=== PATIENT | female | born 2000 | race Caucasian/White ===

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

== ENCOUNTER 2020-07-26 00:50 | Emergency (ER) | payer SELFPAY ==
[~2020-07-26] VITALS: Ht 160 cm; Wt 67.0 kg
[~2020-07-26 00:50] MED LIST changes: +ACHYD1T PO; +BENZ100C18 PO; +CEFD300C3 PO; +GUAI1TBM19 PO; -HYDR-3820 PO; +METH4TAB PO; +RT-ALBUINH IH
[2020-07-26] MEDS ORDERED: NS IV 1000 ML 1,000 ML IV SCH (00:59)
[2020-07-26 01:15] LABS: BILIRUBIN,URINE NEGATIVE (NEGATIVE); CLARITY,URINE CLEAR; COLOR,URINE YELLOW; GLUCOSE, URINE (UA) NEGATIVE (NEGATIVE); KETONES,URINE NEGATIVE (NEGATIVE); LEUKOCYTE ESTERASE ,URINE 1+ (NEGATIVE); NITRITE,URINE NEGATIVE (NEGATIVE); PROTEIN,URINE NEGATIVE (NEGATIVE)
[2020-07-26] MEDS ORDERED: fentaNYL INJECTION 100 MCG/2 ML AMP IVP ONE (01:15)
[2020-07-26 01:25] LABS: BACTERIA,URINE MODERATE /HPF
[2020-07-26 01:30] LABS: AMPHETAMINE SCREEN, URINE POSITIVE (NEGATIVE); BARBITURATE SCREEN URINE NEGATIVE (NEGATIVE); BENZODIAZEPINES SCREEN URINE NEGATIVE (NEGATIVE); CANNABINOID SCREEN, URINE POSITIVE (NEGATIVE); COCAINE SCREEN URINE NEGATIVE (NEGATIVE); METHADONE STAT NEGATIVE (NEGATIVE); METHAMPHETAMINE SCREEN URINE S POSITIVE (NEGATIVE); OPIATE SCREEN URINE NEGATIVE (NEGATIVE); OXYCODONE STAT NEGATIVE (NEGATIVE); PROPOXYPHENE STAT NEGATIVE (NEGATIVE); TRICYCLIC ANTIDEPRESSANTS SCRE NEGATIVE (NEGATIVE)
[2020-07-26 01:31] LABS: BASOPHILS # (AUTO) 0.1 10^3/uL (0.0-0.1); BASOPHILS % (AUTO) 0 % (0-10); EOSINOPHILS # (AUTO) 0.3 10^3/uL (0.0-0.3); EOSINOPHILS % (AUTO) 3 % (0-10); HEMATOCRIT 38 % (35-52); HEMOGLOBIN 12.9 G/DL (11.5-16.0); LYMPHOCYTES # (AUTO) 2.4 X 10^3 (1.0-4.0); LYMPHOCYTES % (AUTO) 17 % (12-44); MEAN CORPUSCULAR HEMOGLOBIN 30 PG (25-34); MEAN CORPUSCULAR HGB CONC 34 G/DL (32-36); MEAN CORPUSCULAR VOLUME 88 FL (80-99); MEAN PLATELET VOLUME 9.4 FL (7.4-10.4); MONOCYTES # (AUTO) 1.4 X 10^3 (0.0-1.0); MONOCYTES % (AUTO) 10 % (0-12); NEUTROPHILS # (AUTO) 9.5 X 10^3 (1.8-7.8); NEUTROPHILS % (AUTO) 70 % (42-75); PLATELET COUNT 384 10^3/uL (130-400); RED CELL DISTRIBUTION WIDTH 15.1 % (10.0-14.5); WHITE BLOOD COUNT 13.7 10^3/uL (4.3-11.0)
[2020-07-26 01:44] LABS: ALBUMIN 4.6 GM/DL (3.2-4.5); CHLORIDE 103 MMOL/L (98-107); SODIUM 130 MMOL/L (135-145)
[2020-07-26 01:45] LABS: CALCIUM 8.7 MG/DL (8.5-10.1)
[2020-07-26 01:46] LABS: GLUCOSE 86 MG/DL (70-105)
[2020-07-26 01:47] LABS: CARBON DIOXIDE 20 MMOL/L (21-32); TOTAL PROTEIN 9.9 GM/DL (6.4-8.2)
[2020-07-26 01:48] LABS: BILIRUBIN,TOTAL 0.2 MG/DL (0.1-1.0)
[2020-07-26 01:50] LABS: ALKALINE PHOSPHATASE 72 U/L (40-136); CREATININE SERUM 0.79 MG/DL (0.60-1.30); GFR ESTIMATED > 60
[2020-07-26 01:51] LABS: BUN/CREATININE RATIO 41
[2020-07-26 01:53] LABS: ALANINE AMINOTRANSFERASE 26 U/L (0-55); MAGNESIUM 2.4 MG/DL (1.6-2.4)
[2020-07-26 02:13] LABS: POTASSIUM 4.3 MMOL/L (3.6-5.0)
[2020-07-26] MEDS ORDERED: NS 100 ML (IVPB) BAG IV ONE (02:45)
[2020-07-26] MEDS ORDERED: CATHETER FLUSH 10 ML SYR IV PRN (02:45)
[2020-07-26] MEDS ORDERED: HOLD METFORMIN - RECEIVED CONTRAST 20 ML VIAL IV SCH (02:45)
[2020-07-26] MEDS ORDERED: IOHEXOL 350 MG/ML 100 ML (OMNIPAQUE 350) VIAL IV ONE (02:45)
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
[2020-07-26] MEDS ORDERED: SULF1TAB35 PO (03:29)
[2020-07-26 03:30] VITALS: BP 104/65
[2020-07-26] MEDS ORDERED: TRIM/SULFAMETH 160/800 (SEPTRA DS) TAB PO ONE (03:30)
--- NOTE | 2020-07-26 07:50 | Diagnostic Imaging Report ---
PROCEDURE: CT chest, abdomen, and pelvis with contrast. TECHNIQUE: Multiple contiguous axial images were obtained through the chest, abdomen, and pelvis after the administration of intravenous contrast. Auto Exposure Controls were utilized during the CT exam to meet ALARA standards for radiation dose reduction. INDICATION: Right-sided chest and flank pain. CORRELATION STUDY: CT abdomen and pelvis 03/10/2018 FINDINGS: CT CHEST: Heart size is unremarkable. No pericardial effusion. Thoracic aorta unremarkable. No mediastinal hematoma. No pathologically enlarged thoracic lymphadenopathy. The lung vega without infiltrate, effusion and/or pneumothorax. Partially healed right sixth and eighth rib fractures. Age indeterminate but appears to be at least subacute in nature. CT ABDOMEN and PELVIS: Liver, spleen, pancreatic bed, gallbladder adrenal glands are unremarkable but are limited assessment given generalized paucity of body fat. Kidneys normal enhancement. No hydronephrosis. Abdominal aorta normal in contour. No free air or significant ascites. Stomach distended with retained gastric contents and fluid. No small bowel obstruction. Mild severity fecal retention stool throughout the colon. Appendix not discretely localized. Urinary bladder is decompressed. The uterus is grossly unremarkable. Osseous structures demonstrate no acute findings. IMPRESSION: CT CHEST: 1. Partially healed, likely at least subacute in nature right sixth and eighth rib fractures. No definitive acute fracture or otherwise acute abnormality of the chest. CT ABDOMEN and PELVIS: 1. Negative for acute abnormality about the abdomen and/or pelvis. However, overall assessment is somewhat compromised and limited given patient's generalized paucity of mesenteric fat. Initial report was provided by [employer]. Dictated by: Dictated on workstation # [id number]
--- NOTE | 2020-07-26 07:54 | Diagnostic Imaging Report ---
INDICATION: Right-sided rib pain after fall into [facility].. TECHNIQUE: Single view chest 1:12 AM. CORRELATION STUDY: 06/26/2018 FINDINGS: The heart size, mediastinal configuration and pulmonary vascularity are within normal limits. The lungs are clear with no consolidating infiltrate. There is no significant effusion or pneumothorax. What appear to be incompletely healed right posterior lateral sixth and eighth rib fracture deformities. IMPRESSION: 1. Right posterior lateral sixth and eighth rib fracture deformities. While age is indeterminate, appears to be likely at least subacute or chronic in nature but is new change from prior study. Otherwise negative for acute cardiopulmonary abnormality. Dictated by: Dictated on workstation # [id number]
== END 2020-07-26 03:36 | disposition home or self-care (01) ==
LOC: EDUNIT# 00:52 → ER 00:55
DX: R07.89 Other chest pain (principal); N39.0 Urinary tract infection, site not specified; R00.0 Tachycardia, unspecified; F15.10 Other stimulant abuse, uncomplicated; F17.210 Nicotine dependence, cigarettes, uncomplicated; Z88.0 Allergy status to penicillin; Z88.5 Allergy status to narcotic agent; Z88.8 Allergy status to other drugs, medicaments and biological substances; Z82.49 Family history of ischemic heart disease and other diseases of the circulatory system
CPT/HCPCS: 71045; 71260; 74177; 80053; 80306; 81000; 83735; 84703; 85025; 86141; 87088; G0480; 36415; 80320

== ENCOUNTER 2020-11-20 12:55 | Emergency (ER) | payer SELFPAY ==
[~2020-11-20] VITALS: Ht 160 cm; Wt 59.0 kg
[~2020-11-20 12:55] MED LIST changes: +SULF1TAB35 PO
[2020-11-20 13:22] LABS: BILIRUBIN,URINE NEGATIVE (NEGATIVE); CLARITY,URINE CLOUDY; COLOR,URINE YELLOW; GLUCOSE, URINE (UA) NEGATIVE (NEGATIVE); KETONES,URINE NEGATIVE (NEGATIVE); LEUKOCYTE ESTERASE ,URINE TRACE (NEGATIVE); NITRITE,URINE NEGATIVE (NEGATIVE); PH,URINE 6.5 (5-9); PROTEIN,URINE NEGATIVE (NEGATIVE)
[2020-11-20 13:25] LABS: BASOPHILS % (AUTO) 0 % (0-10); EOSINOPHILS # (AUTO) 0.3 10^3/uL (0.0-0.3); EOSINOPHILS % (AUTO) 2 % (0-10); HEMATOCRIT 35 % (35-52); HEMOGLOBIN 11.1 g/dL (11.5-16.0); LYMPHOCYTES % (AUTO) 21 % (12-44); MEAN CORPUSCULAR HEMOGLOBIN 28 pg (25-34); MEAN CORPUSCULAR HGB CONC 32 g/dL (32-36); MEAN CORPUSCULAR VOLUME 87 fL (80-99); MONOCYTES # (AUTO) 1.7 10^3/uL (0.0-1.0); MONOCYTES % (AUTO) 12 % (0-12); NEUTROPHILS # (AUTO) 9.6 10^3/uL (1.8-7.8); NEUTROPHILS % (AUTO) 65 % (42-75); PLATELET COUNT 424 10^3/uL (130-400); WHITE BLOOD COUNT 14.8 10^3/uL (4.3-11.0)
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
[2020-11-20] MEDS ORDERED: KETOROLAC 30 MG/ML VIAL IVP ONE (13:30)
[2020-11-20] MEDS ORDERED: IOHEXOL 350 MG/ML 100 ML (OMNIPAQUE 350) VIAL IV ONE (13:30)
[2020-11-20] MEDS ORDERED: NS 100 ML (IVPB) BAG IV ONE (13:30)
[2020-11-20] MEDS ORDERED: fentaNYL INJECTION 100 MCG/2 ML AMP IVP ONE (13:30)
[2020-11-20] MEDS ORDERED: HOLD METFORMIN - RECEIVED CONTRAST 20 ML VIAL IV SCH (13:30)
[2020-11-20 13:32] LABS: BACTERIA,URINE FEW /HPF; RBC,URINE 0-2 /HPF
[2020-11-20 13:33] LABS: AMORPHOUS SEDIMENT,UR FEW AMOR PHOSPHATE /LPF
[2020-11-20 13:34] LABS: AMPHETAMINE SCREEN, URINE POSITIVE (NEGATIVE); BENZODIAZEPINES SCREEN URINE NEGATIVE (NEGATIVE); CANNABINOID SCREEN, URINE POSITIVE (NEGATIVE); COCAINE SCREEN URINE NEGATIVE (NEGATIVE); METHAMPHETAMINE SCREEN URINE S POSITIVE (NEGATIVE)
[2020-11-20 13:35] LABS: ALBUMIN 3.7 GM/DL (3.2-4.5)
[2020-11-20 13:35] LABS: BARBITURATE SCREEN URINE NEGATIVE (NEGATIVE); METHADONE STAT NEGATIVE (NEGATIVE); OPIATE SCREEN URINE NEGATIVE (NEGATIVE); OXYCODONE STAT NEGATIVE (NEGATIVE); PROPOXYPHENE STAT NEGATIVE (NEGATIVE); TRICYCLIC ANTIDEPRESSANTS SCRE NEGATIVE (NEGATIVE)
[2020-11-20 13:36] LABS: CHLORIDE 104 MMOL/L (98-107); POTASSIUM 4.2 MMOL/L (3.6-5.0); SODIUM 140 MMOL/L (135-145)
[2020-11-20 13:37] LABS: CALCIUM 8.9 MG/DL (8.5-10.1)
[2020-11-20 13:38] LABS: GLUCOSE 93 MG/DL (70-105); TOTAL PROTEIN 7.6 GM/DL (6.4-8.2)
[2020-11-20 13:39] LABS: CARBON DIOXIDE 25 MMOL/L (21-32)
[2020-11-20 13:40] LABS: BILIRUBIN,TOTAL 0.3 MG/DL (0.1-1.0)
[2020-11-20 13:41] LABS: ALKALINE PHOSPHATASE 114 U/L (40-136); CREATININE SERUM 0.68 MG/DL (0.60-1.30); GFR ESTIMATED > 60
[2020-11-20 13:43] LABS: BUN/CREATININE RATIO 24
[2020-11-20 13:44] LABS: ALANINE AMINOTRANSFERASE 27 U/L (0-55)
[2020-11-20 13:45] LABS: LIPASE 16 U/L (8-78)
[2020-11-20 13:52] LABS: EOSINOPHILS % (MANUAL) 2 %; LYMPHOCYTES % (MANUAL) 16 %; MONOCYTES % (MANUAL) 17 %; NEUTROPHILS % (MANUAL) 65 %
[2020-11-20 13:53] LABS: ANISOCYTOSIS SLIGHT; MICROCYTOSIS SLIGHT
[2020-11-20 15:00] VITALS: BP 103/67
[2020-11-20] MEDS ORDERED: cefTRIAXone FOR IV USE 1,000 MG in WATER (STERILE) FOR INJECTION 10 ML IV ONE (15:00)
[2020-11-20] MEDS ORDERED: DOXY100T2 PO (15:04)
[2020-11-20] MEDS ORDERED: AZITHROMYCIN 250 MG TAB (ZITHROMAX) PO SCH (15:15)
[2020-11-20] MEDS ORDERED: cefTRIAXone 1,000 MG/2.86 ml vial (IM ONLY) IM SCH (15:15)
[2020-11-20] MEDS ORDERED: LIDOCAINE 1% INJ 20 ML 20 ML VIAL INJ ONE (15:15)
--- NOTE | 2020-11-20 15:17 | Diagnostic Imaging Report ---
CLINICAL INDICATION: Patient with right lower quadrant pain x 2 days. EXAM: Axial CT scan of the abdomen and pelvis performed with 74 mL of Omnipaque 350 IV contrast. Sagittal and coronal reformatted images were created. Auto Exposure Controls were utilized during the CT exam to meet ALARA standards for radiation dose reduction. COMPARISON: CT scan of the chest, abdomen and pelvis dated 07/26/2020. FINDINGS: Visualized lung bases are clear. The liver, spleen, pancreas, gallbladder and adrenal glands are unremarkable. The gallbladder is predominantly decompressed. Both kidneys are unremarkable with no hydronephrosis, mass or stones. There is no intra-abdominal free air or free fluid. The uterus has a more ill-defined appearance with loss of fat plane of body. There is tortuous apparent fluid collections or peripheral enhancement involving the right and left sides of the uterus in the pelvis regions. These may represent dilated fallopian tubes. There is intestine seen near that area as well. The bladder shows no gross abnormality, as visualized, and has a small amount of fluid within it. There is small to moderate amount of stool within the colon. The appendix is obscured due to closely adjacent intestines and no significant intra-abdominal fat. IMPRESSION: 1: There is interval ill-defined appearance of the uterus and the appearance of dilated tubular structures involving the right and left sides of the uterus in the low pelvis region. Etiology such as PID with tubo-ovarian abscess is of concern. Fluid-filled loops of small bowel may also be a consideration for these fluid-filled tubes in the pelvis. Ultrasound of the pelvis may help better evaluate. 2: Of note, the appendix is obscured and not delineated on this exam due to low intra-abdominal fat and multiple intestines crowded in the region. Results of this report was discussed with Shawn Mosley APRN via the telephone on 11/20/2020 at 1450 hours. Dictated by: Dictated on workstation # [id number]
== END 2020-11-20 15:00 | disposition left against medical advice (07) ==
LOC: EDUNIT# 12:55 → ER 12:57
DX: R10.31 Right lower quadrant pain (principal); Z82.49 Family history of ischemic heart disease and other diseases of the circulatory system; Z83.3 Family history of diabetes mellitus; Z88.5 Allergy status to narcotic agent; Z88.0 Allergy status to penicillin; Z88.8 Allergy status to other drugs, medicaments and biological substances
CPT/HCPCS: 36415; 74177; 80053; 80306; 81000; 83690; 84145; 84703; 85007; 85025; 85027; 86141; 86780; 87088